=== PATIENT | male | born 1985 | race Caucasian/White ===

== ENCOUNTER 2019-12-16 12:23 | Emergency (ER) | payer OTHER ==
[~2019-12-16] VITALS: Ht 195.6 cm; Wt 115.7 kg
[2019-12-16 12:58] VITALS: BP 103/74
[2019-12-16] MEDS ORDERED: IOHEXOL 300 MG/ML 100ML BOTTLE IJ ONE (13:15)
[2019-12-16] MEDS ORDERED: SODIUM CHLORIDE 0.9% 1,000 ML IV ONE (14:00)
[2019-12-16] MEDS ORDERED: cefTRIAXone 1GM/50ML D5W 50 ML IV ONE (14:00)
[2019-12-16] MEDS ORDERED: KETOROLAC TROMETH 30 MG/ML 1ML VIAL ONE (14:22)
[2019-12-16] MEDS ORDERED: KETOROLAC TROMETH 15 mg/ml 1ML VL IV ONE (14:30)
== END 2019-12-16 16:30 | disposition home or self-care (01) ==
LOC: ER 12:29
DX: S32.009A Unspecified fracture of unspecified lumbar vertebra, initial encounter for closed fracture (principal); S51.812A Laceration without foreign body of left forearm, initial encounter; S70.212A Abrasion, left hip, initial encounter; V86.56XA Driver of dirt bike or motor/cross bike injured in nontraffic accident, initial encounter; Y93.89 Activity, other specified; Y99.8 Other external cause status; Y92.89 Other specified places as the place of occurrence of the external cause
CPT/HCPCS: 12002; 72128; 72131; 73090; 74177; 96365; 99285; J0696; J1885; Q9967